=== PATIENT | male | born 1960 | race American Indian/Alaskan Native ===

== ENCOUNTER 2018-12-27 10:06 | Emergency (ER) | payer OTHER ==
--- NOTE | 2018-12-27 11:02 | Emergency Department Report ---
ED Neuro Deficit HPI - General Chief Complaint: Extremity Problem,Nontraumatic Stated Complaint: LFT SIDE ARM NUMB/FINGERS Time Seen by Provider: 12/27/18 10:30 Source: patient Mode of arrival: Ambulatory Limitations: No Limitations - History of Present Illness Initial Comments: 58-year-old male presents to ED with complaint of numbness and tingling to left forearm, hand, and fingers; also numbness and tingling to the fingertips of the right thumb, index, and middle fingers. The patient reports onset 2 days ago. States he will follow up with the paresthesias. Denies any extremity weakness. Patient states he figured he may have slept on his arm. Patient states the left forearm paresthesias include only the distal half of his forearm. Patient denies fever, headache, neck pain, shoulder pain, wrist pain, elbow pain. -: days(s) (2) History of same: No Place: home Severity: mild Quality: tingling Improves With: none Worsens With: none On Anticoagulants: No Context: other (awoke with symptoms) Associated Symptoms: denies: chest pain, fever/chills, headaches, shortness of breath, syncope, weakness - Related Data Home Medications: Previous Rx's Medication Instructions Recorded Last Taken Type Acetaminophen/Codeine [Tylenol #3] 1 tab PO Q6H PRN #20 tab 02/14/15 Unknown Rx Ibuprofen [Motrin 800 MG tab] 800 mg PO Q8HR PRN #30 tablet 02/14/15 Unknown Rx Penicillin Vk [Veetids TAB] 500 mg PO QID #40 tablet 02/14/15 Unknown Rx Allergies/Adverse Reactions: Allergies Allergy/AdvReac Type Severity Reaction Status Date / Time No Known Allergies Allergy Unverified 12/01/13 21:54 ED Review of Systems ROS: Stated complaint: LFT SIDE ARM NUMB/FINGERS Other details as noted in HPI Comment: All other systems reviewed and negative Constitutional: denies: fever Respiratory: denies: shortness of breath Cardiovascular: denies: chest pain Gastrointestinal: denies: nausea, vomiting Neurological: paresthesias. denies: headache, weakness, vertigo ED Past Medical Hx - Social History Smoking Status: Current Some Day Smoker Substance Use Type: None - Medications Home Medications: Home Medications Medication Instructions Recorded Confirmed Last Taken Type Acetaminophen/Codeine [Tylenol #3] 1 tab PO Q6H PRN #20 tab 02/14/15 Unknown Rx Ibuprofen [Motrin 800 MG tab] 800 mg PO Q8HR PRN #30 tablet 02/14/15 Unknown Rx Penicillin Vk [Veetids TAB] 500 mg PO QID #40 tablet 02/14/15 Unknown Rx ED Neuro Physical Exam - General Limitations: No Limitations General appearance: alert, in no apparent distress Suspected Stroke: No - Head Head exam: Present: atraumatic, normocephalic - Eye Eye exam: Present: normal appearance, PERRL, EOMI - ENT ENT exam: Present: mucous membranes moist - Neck Neck exam: Present: normal inspection - Respiratory Respiratory exam: Present: normal lung sounds bilaterally. Absent: respiratory distress - Cardiovascular Cardiovascular Exam: Present: regular rate, normal rhythm - GI/Abdominal GI/Abdominal exam: Present: soft. Absent: distended, tenderness - Extremities Exam Extremities exam: Present: normal inspection - Neurological Exam Neurological exam: Present: alert, oriented X3, CN II-XII intact - NIHSS Assessment Interval: Baseline 1a. Level of Consciousness: alert/keenly responsive 1b. LOC Questions: answers both correctly 1c. LOC Commands: performs tasks correctly 2. Best Gaze: normal 3. Visual: no visual loss 4. Facial Palsy: normal symmetrical movement 5b. Motor Arm Right: no drift 5a. Motor Arm Left: no drift 6a. Motor Leg Left: no drift 6b. Motor Leg Right: no drift 7. Limb Ataxia: absent 8. Sensory: mild/moderate sensory loss 9. Best Language: no aphasia 10. Dysarthria: normal 11. Extinction/Inattention: no abnormality Total Score: 1 Stroke Severity: Minor Stroke - Psychiatric Psychiatric exam: Present: normal affect, normal mood - Skin Skin exam: Present: warm, dry, intact, normal color ED Course Vital Signs 12/27/18 12/27/18 10:15 11:15 Temperature 97.7 F Pulse Rate 80 79 Respiratory 15 20 Rate Blood Pressure 178/113 163/107 [Left] O2 Sat by Pulse 97 Oximetry - Reevaluation(s) Reevaluation #1: 12/27/18 12:11 Pt eloped. - Lab Data Result diagrams: 12/27/18 11:46 Lab Results 12/27/18 Range/Units 11:46 WBC 4.7 (4.5-11.0) K/mm3 RBC 4.35 (3.65-5.03) M/mm3 Hgb 13.9 (11.8-15.2) gm/dl Hct 40.9 (35.5-45.6) % MCV 94 (84-94) fl MCH 32 (28-32) pg MCHC 34 (32-34) % RDW 15.3 H (13.2-15.2) % Plt Count 188 (140-440) K/mm3 Lymph % (Auto) 30.0 (13.4-35.0) % Gila % (Auto) 7.9 H (0.0-7.3) % Eos % (Auto) 1.7 (0.0-4.3) % Baso % (Auto) 1.3 (0.0-1.8) % Lymph # 1.4 (1.2-5.4) K/mm3 Gila # 0.4 (0.0-0.8) K/mm3 Eos # 0.1 (0.0-0.4) K/mm3 Baso # 0.1 (0.0-0.1) K/mm3 Seg Neutrophils % 59.1 (40.0-70.0) % Seg Neutrophils # 2.7 (1.8-7.7) K/mm3 Critical care attestation.: If time is entered above; I have spent that time in minutes in the direct care of this critically ill patient, excluding procedure time. ED Disposition Clinical Impression: Hypertension, Peripheral neuropathy Disposition: ELOPED Is pt being admited?: No Condition: Stable Instructions: Hypertension (ED), Peripheral Neuropathy (ED), Paresthesia (ED) Referrals: JULIETA SHAHID MD [Primary Care Provider] - 3-5 Days Time of Disposition: 12:11
[2018-12-27 11:15] VITALS: BP 163/107
[2018-12-27 12:01] LABS: Red Blood Count 4.35 M/mm3 (3.65-5.03)
[2018-12-27 12:02] LABS: Basophils # (Auto) 0.1 K/mm3 (0.0-0.1); Basophils % (Auto) 1.3 % (0.0-1.8); Eosinophils # (Auto) 0.1 K/mm3 (0.0-0.4); Eosinophils % (Auto) 1.7 % (0.0-4.3); Hematocrit 40.9 % (35.5-45.6); Hemoglobin 13.9 gm/dl (11.8-15.2); Lymphocytes # (Auto) 1.4 K/mm3 (1.2-5.4); Mean Corpuscular HGB Conc 34 % (32-34); Mean Corpuscular Volume 94 fl (84-94); Monocytes # (Auto) 0.4 K/mm3 (0.0-0.8); Monocytes % (Auto) 7.9 % (0.0-7.3); Platelet Count 188 K/mm3 (140-440); Red Cell Distribution Width 15.3 % (13.2-15.2)
[2018-12-27 12:13] LABS: BUN/Creatinine Ratio 9; Blood Urea Nitrogen 9 mg/dL (9-20); Calcium 9.4 mg/dL (8.4-10.2); Hemolysis Index 6
== END 2018-12-27 12:13 | disposition left against medical advice (07) ==
LOC: ED 10:06
DX: I10 Essential (primary) hypertension (principal); G62.9 Polyneuropathy, unspecified; F17.200 Nicotine dependence, unspecified, uncomplicated; Z79.1 Long term (current) use of non-steroidal anti-inflammatories (NSAID)
CPT/HCPCS: 36415; 80048; 85025; 99283

== ENCOUNTER 2021-04-28 11:51 | Emergency (ER) | payer SELFPAY ==
[2021-04-28] MEDS ORDERED: BUTALB/ACETAMINOPHEN/CAFFEINE TAB PO ONE (12:25)
[2021-04-28] MEDS ORDERED: amLODIPine 5 MG TAB PO ONE (12:25)
--- NOTE | 2021-04-28 12:34 | Emergency Department Report ---
ED Headache HPI - General Chief Complaint: Headache Stated Complaint: HEADACHE AND DIZZINESS Time Seen by Provider: 04/28/21 12:15 Source: patient Exam Limitations: no limitations - History of Present Illness Initial Comments: 60-year-old male with past medical history morbid obesity and untreated hypertension presents to the hospital planing of a constant global headache for the past 3 to 4 days patient states that headache is rated 10/10 in intensity without aggravating or alleviating factors. Not alleviated with [id number] NSAIDs. He complains of nausea without vomiting. Headache is made worse when going from a dark to light room. He denies head injury, history of headaches, focal weakness, focal numbness, neck pain, or fever. Patient states he had a friend who had a headache and required a drainage tube and never came out to the hospital. Patient's blood pressure is mildly elevated. Patient states he is never taken medication. As per medical record review patient has had significantly elevated BPs with a systolic in the 170s and diastolic in the 1 teens dating back to 2013. He has never follow-up with a primary care doctor. Patient took last took Advil several hours prior to arrival. Patient lives alone and does not have a car monoxide detector. States he uses a electric space heater to he is home Allergies/Adverse Reactions: Allergies No Known Allergies Allergy (Unverified 12/01/13 21:54) Home Medications: Ambulatory Orders Acetaminophen/Codeine [Tylenol #3] 1 tab PO Q6H PRN #20 tab 02/14/15 Ibuprofen [Motrin 800 MG tab] 800 mg PO Q8HR PRN #30 tablet 02/14/15 Penicillin Vk [Veetids TAB] 500 mg PO QID #40 tablet 02/14/15 Amlodipine Besylate [Norvasc] 5 mg PO DAILY #30 tablet 04/28/21 Butalb/Acetamin/Caff 50-325-40 [Fioricet 50-325-40] 1 tab PO Q6HR PRN #20 tab 04/28/21 ED Review of Systems ROS: Stated complaint: HEADACHE AND DIZZINESS Other details as noted in HPI Comment: All other systems reviewed and negative ED Past Medical Hx - Past Medical History Previous Medical History?: Yes Hx Hypertension: Yes - Surgical History Past Surgical History?: Yes Additional Surgical History: ankle sx - Social History Smoking Status: Current Some Day Smoker Substance Use Type: None - Medications Home Medications: Home Medications Medication Instructions Recorded Confirmed Last Taken Type Acetaminophen/Codeine [Tylenol #3] 1 tab PO Q6H PRN #20 tab 02/14/15 Unknown Rx Ibuprofen [Motrin 800 MG tab] 800 mg PO Q8HR PRN #30 tablet 02/14/15 Unknown Rx Penicillin Vk [Veetids TAB] 500 mg PO QID #40 tablet 02/14/15 Unknown Rx Amlodipine Besylate [Norvasc] 5 mg PO DAILY #30 tablet 04/28/21 Unknown Rx Butalb/Acetamin/Caff 50-325-40 1 tab PO Q6HR PRN #20 tab 04/28/21 Unknown Rx [Fioricet 50-325-40] ED Physical Exam - General Limitations: No Limitations - Other Other exam information: General: No acute distress Head: Atraumatic Eyes: normal appearance pupils equal and reactive to light ENT: Moist mucous membranes Neck: Normal appearance, no midline tenderness Chest: Clear to auscultation bilaterally CV: Regular rate and rhythm Abdomen: Soft, normal bowel sounds, nontender, nondistended, no rebound or guarding Back: Normal inspection Extremity: Normal inspection, full range of motion Neuro: Alert O x 3, no facial asymmetry, speech clear, no gross motor sensory deficit, [id number] function intact Psych: Appropriate behavior Skin: No rash ED Course Vital Signs 04/28/21 12:08 Temperature 98.6 F Pulse Rate 85 Respiratory 18 Rate Blood Pressure 153/96 [Right] O2 Sat by Pulse 98 Oximetry ED Medical Decision Making - Radiology Data Radiology results: report reviewed CT HEAD WITHOUT CONTRAST INDICATION / CLINICAL INFORMATION: Patient complains of a headache. TECHNIQUE: All CT scans at this location are performed using CT dose reduction for ALARA by means of automated exposure control. COMPARISON: None available. FINDINGS: HEMORRHAGE: No evidence of intracranial hemorrhage or extra-axial fluid collection. EXTRA-AXIAL SPACES: Cortical sulci, sylvian fissures and basilar cisterns have an unremarkable appearance. VENTRICULAR SYSTEM: The third and lateral ventricles are of normal size and configuration. CEREBRAL PARENCHYMA: Subtle periventricular and deep white matter lucencies noted compatible with early microvascular ischemic change. MIDLINE SHIFT OR HERNIATION: There is no mass effect. CEREBELLUM / BRAINSTEM: Brainstem and cerebellum have an unremarkable appearance. MIDLINE STRUCTURES:No abnormalities of the pituitary gland or pineal region are identified. INTRACRANIAL VESSELS:No abnormalities are identified on this noncontrast head CT. ORBITS: visualized portions of the orbits have an unremarkable appearance. SOFT TISSUES of HEAD: No significant abnormality. CALVARIUM: Evaluation of bone windows reveals no abnormalities. PARANASAL SINUSES / MASTOID AIR CELLS: Visualized portions of the paranasal sinuses are free from inflammatory mucosal disease. Mastoid air cells are normally pneumatized. ADDITIONAL FINDINGS: None. IMPRESSION: 1. Mild microvascular ischemic change. 2. Otherwise normal head CT without contrast. Signer Name: Nolan Jackson MD Signed: 04/28/2021 2:06 PM Workstation Name: [id number] - Medical Decision Making 60-year-old male presents to the hospital complaining of headache for [address] head does not show any acute abnormality. Incidental findings noted. Patient presents once again with elevated BP. Patient has had several years of elevated BP without PMD follow-up for meds. Norvasc initiated in ED. Fioricet provided with improvement in headache. Stressed importance of follow-up due to chronic untreated hypertension Critical Care Time: No Critical care attestation.: If time is entered above; I have spent that time in minutes in the direct care of this critically ill patient, excluding procedure time. ED Disposition Clinical Impression: Headache, Chronic hypertension Disposition: 01 HOME / SELF CARE / HOMELESS Is pt being admited?: No Does the pt Need Aspirin: No Condition: Stable Instructions: Hypertension (ED), Hypertension, Adult, Tension Headache, Adult Additional Instructions: Take the medication as prescribed. Follow-up with your doctor or doctor/clinic provided. Return if symptoms worsen as indicated by your discharge instructions. Prescriptions: Butalb/Acetamin/Caff 50-325-40 [Fioricet 50-325-40] 1 tab PO Q6HR PRN #20 tab PRN Reason: Headache Amlodipine Besylate [Norvasc] 5 mg PO DAILY #30 tablet Referrals: PRIMARY MD ABEL [Primary Care Provider] - 3-5 Days [facility] [Provider Group] - 3-5 Days BRIANNA ROJAS MD [Staff Physician] - 3-5 Days Time of Disposition: 14:54
--- NOTE | 2021-04-28 14:10 | Cat Scan Report ---
CT HEAD WITHOUT CONTRAST INDICATION / CLINICAL INFORMATION: Patient complains of a headache. TECHNIQUE: All CT scans at this location are performed using CT dose reduction for ALARA by means of automated e xposure control. COMPARISON: None available. FINDINGS: HEMORRHAGE: No evidence of intracranial hemorrhage or extra-axial fluid collection. EXTRA-AXIAL SPACES: Cortical sulci, sylvian fissures and basilar cisterns have an unremarkable appear ance. VENTRICULAR SYSTEM: The third and lateral ventricles are of normal size and configuration. CEREBRAL PARENCHYMA: Subtle periventricular and deep white matter lucencies noted compatible with ear ly microvascular ischemic change. MIDLINE SHIFT OR HERNIATION: There is no mass effect. CEREBELLUM / BRAINSTEM: Brainstem and cerebellum have an unremarkable appearance. MIDLINE STRUCTURES:No abnormalities of the pituitary gland or pineal region are identified. INTRACRANIAL VESSELS:No abnormalities are identified on this noncontrast head CT. ORBITS: visualized portions of the orbits have an unremarkable appearance. SOFT TISSUES of HEAD: No significant abnormality. CALVARIUM: Evaluation of bone windows reveals no abnormalities. PARANASAL SINUSES / MASTOID AIR CELLS: Visualized portions of the paranasal sinuses are free from inf lammatory mucosal disease. Mastoid air cells are normally pneumatized. ADDITIONAL FINDINGS: None. IMPRESSION: 1. Mild microvascular ischemic change. 2. Otherwise normal head CT without contrast. Signer Name: Nolan Jackson MD Signed: 04/28/2021 2:06 PM Workstation Name: [id number]
[2021-04-28 15:54] VITALS: BP 186/88
== END 2021-04-28 15:57 | disposition home or self-care (01) ==
LOC: ED 11:51
DX: G89.29 Other chronic pain (principal); R51.9 Headache, unspecified; I10 Essential (primary) hypertension; F17.200 Nicotine dependence, unspecified, uncomplicated
CPT/HCPCS: 70450; 99283

== ENCOUNTER 2021-06-23 06:31 | Emergency (ER) | payer SELFPAY ==
[2021-06-23] MEDS ORDERED: hydrALAZINE 20 MG/1 ML INJ IV ONE (07:30)
[2021-06-23] MEDS ORDERED: diphenhydrAMINE 50 MG/ML VIAL IV ONE (07:30)
[2021-06-23] MEDS ORDERED: METOCLOPRAMIDE 10 MG/2 ML INJ IV ONE (07:30)
[2021-06-23 07:51] LABS: Alanine Aminotransferase 27 units/L (7-56); Albumin 4.1 g/dL (3.9-5); Blood Urea Nitrogen 6 mg/dL (9-20); Calcium 9.1 mg/dL (8.4-10.2); Hemolysis Index 67
[2021-06-23 07:52] LABS: BUN/Creatinine Ratio 9
[2021-06-23 07:54] LABS: Basophils % (Auto) 0.3 % (0.0-1.8); Eosinophils # (Auto) 0.1 K/mm3 (0.0-0.4); Eosinophils % (Auto) 1.2 % (0.0-4.3); Lymphocytes # (Auto) 2.1 K/mm3 (1.2-5.4); Lymphocytes % (Auto) 39.3 % (13.4-35.0); Mean Corpuscular HGB Conc 32 % (32-34); Mean Corpuscular Volume 96 fl (84-94); Monocytes # (Auto) 0.5 K/mm3 (0.0-0.8); Monocytes % (Auto) 8.6 % (0.0-7.3); Platelet Count 258 K/mm3 (140-440); Red Blood Count 4.17 M/mm3 (3.65-5.03)
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
[2021-06-23 12:34] LABS: Bilirubin,Urine NEG (Negative); Blood,Urine NEG (Negative); Color,Urine Yellow (Yellow); Mucus,Urine 2+ /HPF; RBC,Urine < 1.0 /HPF (0.0-6.0); Urobilinogen,Urine < 2.0 mg/dL (<2.0)
[2021-06-23 12:47] VITALS: BP 152/93
--- NOTE | 2021-06-26 08:48 | Electrocardiograph Report ---
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
== END 2021-06-23 12:53 | disposition home or self-care (01) ==
LOC: ED 06:31
DX: S13.4XXA Sprain of ligaments of cervical spine, initial encounter (principal); S39.92XA Unspecified injury of lower back, initial encounter; S89.90XA Unspecified injury of unspecified lower leg, initial encounter; R51.9 Headache, unspecified; Z91.14 Patient's other noncompliance with medication regimen; I10 Essential (primary) hypertension; F17.200 Nicotine dependence, unspecified, uncomplicated; V49.49XA Driver injured in collision with other motor vehicles in traffic accident, initial encounter; Y93.89 Activity, other specified; Y92.89 Other specified places as the place of occurrence of the external cause; Y99.8 Other external cause status
CPT/HCPCS: 36415; 70450; 72100; 72125; 73562; 80053; 81001; 85025; 93005; 96374; 96375; 99284; J0360; J1200; J2765

== ENCOUNTER 2021-11-13 22:08 | Emergency (ER) | payer SELFPAY | END 2021-11-13 22:15 | disposition left against medical advice (07) | LOC: ED 22:08 | DX: M25.571 Pain in right ankle and joints of right foot (principal); Z53.21 Procedure and treatment not carried out due to patient leaving prior to being seen by health care provider ==